=== PATIENT | male | born 1940 | race Caucasian/White ===

== ENCOUNTER 2017-06-10 09:24 | Emergency (ER) | payer OTHER, MEDICARE ==
[~2017-06-10] VITALS: Ht 177.8 cm; Wt 104.3 kg
[~2017-06-10 09:24] MED LIST: ATEN25 PO; Aspir 8181 MG PO; Cascara Sagrad473 ML; FENO145 PO; FENO48 PO; FISH1000 PO; GABA300 PO; GABA600 PO; HYDHCL25 PO; IBUP400 PO; LISI20 PO; MULVITMIND PO; Norco 5-325 Ta1 EACH PO; OMEP20ER PO; OMEPRAZOLE MAGN20 MG PO; POTCHL20ER PO; PRAZ1 PO; SERT100 PO; [UNRECOGNIZED DRUG - OTHER] MC
[2017-06-10] MEDS ORDERED: HYDR1TAB94 PO (12:10)
== END 2017-06-10 12:21 | disposition home or self-care (01) ==
LOC: ER 09:24
DX: S02.31XA Fracture of orbital floor, right side, initial encounter for closed fracture (principal); S02.40EA Zygomatic fracture, right side, initial encounter for closed fracture; S02.40CA Maxillary fracture, right side, initial encounter for closed fracture; S02.81XA Fracture of other specified skull and facial bones, right side, initial encounter for closed fracture; S00.11XA Contusion of right eyelid and periocular area, initial encounter; H53.2 Diplopia; I10 Essential (primary) hypertension; F41.9 Anxiety disorder, unspecified; F43.10 Post-traumatic stress disorder, unspecified; Z79.82 Long term (current) use of aspirin; Z79.899 Other long term (current) drug therapy; Z88.0 Allergy status to penicillin; Z88.8 Allergy status to other drugs, medicaments and biological substances; W01.0XXA Fall on same level from slipping, tripping and stumbling without subsequent striking against object, initial encounter
CPT/HCPCS: 70486; 99284

== ENCOUNTER 2018-07-17 11:30 | Emergency (ER) | payer SELFPAY ==
[~2018-07-17] VITALS: Ht 177.8 cm; Wt 104.3 kg
[~2018-07-17 11:30] MED LIST changes: +HYDR1TAB94 PO
[2018-07-17 12:12] LABS: BASOPHILS ABSOLUTE AUTO 0.01 K/mm3 (0.00-0.23); BASOPHILS PERCENT AUTO 0 % (0-2); EOSINOPHILS PERCENT AUTO 0 % (0-6); Hemoglobin 15.1 g/dL (13.5-17.5); IMMATURE GRAN ABSOLUTE AUTO 0.02 K/mm3 (0.00-0.10); IMMATURE GRAN PERCENT AUTO 0 % (0-1); LYMPHOCYTES ABSOLUTE AUTO 1.33 K/mm3 (0.84-5.20); LYMPHOCYTES PERCENT AUTO 15 % (21-46); MONOCYTES ABSOLUTE AUTO 0.82 K/mm3 (0.16-1.47); MONOCYTES PERCENT AUTO 9 % (4-13); Mean Corpuscular HGB 29.3 pg (26.0-34.0); Mean Corpuscular HGB Conc 32.1 g/dL (31.5-36.5); Mean Corpuscular Volume 91 fL (80-100); Mean Platelet Volume 10.6 fL (9.1-12.4); NEUTROPHILS ABSOLUTE AUTO 6.68 K/mm3 (1.96-9.15); NEUTROPHILS PERCENT AUTO 75 % (41-73); Platelet Count 145 K/mm3 (150-400); RDW Coefficient Variation 12.8 % (11.7-14.2); RDW Standard Deviation 42.5 fL (35.1-46.3); Red Blood Cell Count 5.15 M/mm3 (4.30-5.90); White Blood Cell Count 8.86 K/mm3 (4.00-11.30)
[2018-07-17 12:46] LABS: Albumin, Blood 3.5 g/dL (3.4-5.0); Albumin/Globulin Ratio 1.2 (0.8-1.8); Bilirubin, Total 0.4 mg/dL (0.1-1.0); Bun/Creatinine Ratio 11.4 (12.0-20.0); Creatinine, Blood 2.46 mg/dL (0.60-1.20); Potassium, Blood 4.3 mmol/L (3.5-5.5); Total Protein, Blood 6.5 g/dL (6.4-8.2)
== END 2018-07-17 14:55 | disposition home or self-care (01) ==
LOC: ER 11:30
PROVIDERS: Emergency Medicine
DX: E86.0 Dehydration (principal); I12.9 Hypertensive chronic kidney disease with stage 1 through stage 4 chronic kidney disease, or unspecified chronic kidney disease; N18.9 Chronic kidney disease, unspecified; Z88.0 Allergy status to penicillin; Z88.1 Allergy status to other antibiotic agents; Z79.899 Other long term (current) drug therapy; Z79.82 Long term (current) use of aspirin; F41.9 Anxiety disorder, unspecified
CPT/HCPCS: 36415; 80053; 85025; 93005; 93010; 96360; 96361; 99284-25; J7030

== ENCOUNTER 2022-11-27 06:59 | Day surgery (SDC) | payer OTHER ==
[~2022-11-27] VITALS: Ht 177.8 cm; Wt 105.3 kg
[~2022-11-27 06:59] MED LIST changes: +CARV3.125; +FENOFIBRATE40 MG PO; +OMEP20ER
[2022-11-27] MEDS ORDERED: EZET10 PO (07:45)
[2022-11-27] MEDS ORDERED: SERT100 PO (07:45)
[2022-11-27] MEDS ORDERED: FISH OIL 1,2001 EAC7 PO (07:45)
[2022-11-27 09:27] VITALS: BP 144/79
--- NOTE | 2022-11-27 09:42 | NUR ---
11/27/22 0942 Derrick Kelly IV REMOVED INTACT. SITE WNL.
== END 2022-11-27 09:42 | disposition home or self-care (01) ==
LOC: ORSCSDS 06:59
PROVIDERS: Student in an Organized Health Care Education/Training Program
PROC: 08RJ3JZ Replacement of Right Lens with Synthetic Substitute, Percutaneous Approach (ICD-10-PCS; principal; 2022-11-27 08:30)
DX: H25.13 Age-related nuclear cataract, bilateral (principal); I10 Essential (primary) hypertension; I25.10 Atherosclerotic heart disease of native coronary artery without angina pectoris; Z87.891 Personal history of nicotine dependence; G47.33 Obstructive sleep apnea (adult) (pediatric); Z86.73 Personal history of transient ischemic attack (TIA), and cerebral infarction without residual deficits; Z79.899 Other long term (current) drug therapy; K21.9 Gastro-esophageal reflux disease without esophagitis; E66.9 Obesity, unspecified; Z68.33 Body mass index [BMI] 33.0-33.9, adult
CPT/HCPCS: J2250; J3010; J7040; V2632

== ENCOUNTER 2023-11-15 04:22 | Emergency (ER) | payer OTHER ==
[~2023-11-15] VITALS: Ht 177.8 cm; Wt 104.3 kg
[~2023-11-15 04:22] MED LIST changes: +EZET10 PO; +FISH OIL 1,2001 EAC7 PO
[2023-11-15 06:30] VITALS: BP 160/79
== END 2023-11-15 06:40 | disposition home or self-care (01) ==
LOC: ER 04:22
DX: S70.02XA Contusion of left hip, initial encounter (principal); W01.10XA Fall on same level from slipping, tripping and stumbling with subsequent striking against unspecified object, initial encounter; Z88.0 Allergy status to penicillin; Z88.8 Allergy status to other drugs, medicaments and biological substances; Z79.899 Other long term (current) drug therapy; Z87.891 Personal history of nicotine dependence; F41.9 Anxiety disorder, unspecified; F43.10 Post-traumatic stress disorder, unspecified; I10 Essential (primary) hypertension
CPT/HCPCS: 73502; 73552; 99283-25

== ENCOUNTER 2024-02-01 13:37 | Emergency (ER) | payer OTHER ==
[~2024-02-01] VITALS: Ht 177.8 cm; Wt 102.1 kg
[2024-02-01] MEDS ORDERED: Morphine Sulfate 4 MG/1 ML Injection IV ONE (14:45)
[2024-02-01 15:25] VITALS: BP 155/85
== END 2024-02-01 15:30 | disposition home or self-care (01) ==
LOC: ER 13:37
DX: M25.512 Pain in left shoulder (principal); I10 Essential (primary) hypertension; F43.10 Post-traumatic stress disorder, unspecified; Z87.891 Personal history of nicotine dependence; Z79.899 Other long term (current) drug therapy; Z88.0 Allergy status to penicillin; Z88.8 Allergy status to other drugs, medicaments and biological substances
CPT/HCPCS: 73030; 96374; 99283-25; J2270

== ENCOUNTER 2025-03-11 07:41 | Day surgery (SDC) | payer OTHER ==
[2025-03-11] VITALS (7 sets, daily range): BP systolic 147–161; BP diastolic 72–94
[~2025-03-11] VITALS: Ht 177.8 cm; Wt 106.0 kg
[~2025-03-11 07:41] MED LIST changes: +B-121000 MC3 PO; -CARV3.125; +CARV3.125 PO; +CeFAZolin Sodium 2,000 MG in NS 100 ML IV SCH; -LISI20 PO; -OMEP20ER; +Prinivil10 MG PO; +SERTRALINE HCL PO; +SOAANZ20 M2 PO; +Vitamin D1000 UNI1 PO
[2025-03-11] MEDS ORDERED: Bupivacaine 0.5% W/EPI 1:200000 SDV 30 ML Vial ONE (09:12)
[2025-03-11] MEDS ORDERED: FentaNYL Citrate 50 MCG/ML 2 ML Injection ONE ×2 (09:25→09:50)
--- NOTE | 2025-03-11 09:25 | NUR ---
History, Chart, Medications and Allergies reviewed before start of procedure. Pre-Op teaching done. Pt verbalizes understanding. Patient confirms NPO status and agrees with scheduled surgery. Patient reports completing Chlorhexadine shower X2 prior to admission to hospital. Surgical site prepped with 2% Chlorhexidine cloth wipe. Patient States Post-Procedure ride home has been arranged.
[2025-03-11] MEDS ORDERED: FentaNYL Citrate 50 MCG/ML 2 ML Injection IV PRN ×2 (11:10)
--- NOTE | 2025-03-11 11:27 | NUR ---
Discharge instructions reviewed with patient. Patient verbalizes understanding. Copy given to patient to take home. Discharged via wheelchair to private car for ride home.
== END 2025-03-11 23:00 | disposition home or self-care (01) ==
LOC: ORSCMMR 07:41 → ORD 09:00 → ORSCMMR 09:00
PROVIDERS: Surgery
PROC: 0JB70ZX Excision of Back Subcutaneous Tissue and Fascia, Open Approach, Diagnostic (ICD-10-PCS; principal; 2025-03-11 09:00)
DX: D17.1 Benign lipomatous neoplasm of skin and subcutaneous tissue of trunk (principal); I10 Essential (primary) hypertension; I25.10 Atherosclerotic heart disease of native coronary artery without angina pectoris; K21.9 Gastro-esophageal reflux disease without esophagitis; Z86.73 Personal history of transient ischemic attack (TIA), and cerebral infarction without residual deficits; F03.90 Unspecified dementia, unspecified severity, without behavioral disturbance, psychotic disturbance, mood disturbance, and anxiety; Z79.899 Other long term (current) drug therapy
CPT/HCPCS: 88305; 88313; 88342; J0690; J2704; J3010; J7120

== ENCOUNTER 2025-05-02 17:34 | Emergency (ER) | payer OTHER ==
[~2025-05-02] VITALS: Ht 177.8 cm; Wt 104.3 kg
[~2025-05-02 17:34] MED LIST changes: -CeFAZolin Sodium 2,000 MG in NS 100 ML IV SCH
[2025-05-02 18:11] LABS: BASOPHILS ABSOLUTE AUTO 0.03 K/mm3 (0.00-0.23); BASOPHILS PERCENT AUTO 0 % (0-2); EOSINOPHILS ABSOLUTE AUTO 0.14 K/mm3 (0.00-0.68); EOSINOPHILS PERCENT AUTO 2 % (0-6); Hematocrit 45.7 % (37.0-53.0); Hemoglobin 14.9 g/dL (13.5-17.5); IMMATURE GRAN ABSOLUTE AUTO 0.01 K/mm3 (0.00-0.10); IMMATURE GRAN PERCENT AUTO 0 % (0-1); LYMPHOCYTES ABSOLUTE AUTO 1.79 K/mm3 (0.84-5.20); LYMPHOCYTES PERCENT AUTO 27 % (21-46); MONOCYTES ABSOLUTE AUTO 0.74 K/mm3 (0.16-1.47); MONOCYTES PERCENT AUTO 11 % (4-13); Mean Corpuscular HGB Conc 32.6 g/dL (31.5-36.5); Mean Corpuscular Volume 90 fL (80-100); NEUTROPHILS ABSOLUTE AUTO 3.99 K/mm3 (1.96-9.15); NEUTROPHILS PERCENT AUTO 60 % (41-73); NRBC ABSOLUTE 0.00 K/mm3 (0.00-0.02); NRBC Auto 0.0 /100 WBC (0.0-0.2); Platelet Count 143 K/mm3 (150-400); RDW Coefficient Variation 12.9 % (11.7-14.2); RDW Standard Deviation 42.5 fL (35.1-46.3)
[2025-05-02 18:27] LABS: Ethanol (Alcohol), Blood, Med <3 mg/dL; Magnesium, Blood 2.5 mg/dL (1.6-2.4)
[2025-05-02 18:28] LABS: Alanine Aminotransfer (ALT/SGP 25 U/L (12-78); Albumin, Blood 3.7 g/dL (3.4-5.0); Albumin/Globulin Ratio 1.3 (0.8-1.8); Anion Gap 5 mmol/L (3-11); Aspartate Aminotrans (AST/SGOT 16 U/L (12-37); Bilirubin, Total 0.3 mg/dL (0.1-1.0); Blood Urea Nitrogen 27 mg/dL (8-24); CO2, Blood 28 mmol/L (21-32); Calcium, Blood 8.8 mg/dL (8.5-10.1); Chloride, Blood 109 mmol/L (98-108); Creatinine, Blood 1.21 mg/dL (0.60-1.20); Globulin, Blood 2.9 g/dL (2.2-4.0); Glucose, Blood 89 mg/dL (70-99); Potassium, Blood 4.4 mmol/L (3.5-5.5); Sodium, Blood 138 mmol/L (136-145); Total Protein, Blood 6.6 g/dL (6.4-8.2)
[2025-05-02] MEDS ORDERED: NS 1,000 ML IV SCH (19:55)
[2025-05-02 20:59] LABS: Source, Urine Clean Catch
[2025-05-02 21:04] LABS: Bilirubin, Urine Neg (Neg); Color, Urine Yellow (P-Yellow); Glucose Qualitative, Urine Neg (Neg); Ketones, Urine Neg (Neg); Leukocyte Esterase, Urine Neg (Neg); Protein, Urine 1+ (Neg); Specific Gravity, Urine 1.010 (1.003-1.022); Urobilinogen, Urine NORM (Normal)
[2025-05-02 22:32] VITALS: BP 161/86
== END 2025-05-02 22:32 | disposition left against medical advice (07) ==
LOC: ER 17:34
PROVIDERS: Emergency Medicine
DX: I63.9 Cerebral infarction, unspecified (principal); R47.01 Aphasia; R27.0 Ataxia, unspecified; S09.90XA Unspecified injury of head, initial encounter; W19.XXXA Unspecified fall, initial encounter; Z53.29 Procedure and treatment not carried out because of patient's decision for other reasons; I10 Essential (primary) hypertension; Z87.891 Personal history of nicotine dependence; Z88.0 Allergy status to penicillin; Z88.8 Allergy status to other drugs, medicaments and biological substances; Z79.899 Other long term (current) drug therapy
CPT/HCPCS: 70450; 80053; 80320; 83735; 84484; 85025; J7030